=== PATIENT | male | born 1945 | race Caucasian/White ===

== ENCOUNTER → 2016-09-22 | Outpatient (CLI) | payer OTHER | LOC: BHFA 15:00 | PROVIDERS: ATTEND Internal Medicine Interventional Cardiology | DX: I25.10 Atherosclerotic heart disease of native coronary artery without angina pectoris (principal); I10 Essential (primary) hypertension; E78.5 Hyperlipidemia, unspecified ==

== ENCOUNTER 2018-08-12 12:00 | Inpatient (IN) | payer OTHER ==
[2018-09-07] MEDS ORDERED: ceFAZolin 2 GM/DEXTROSE 100 ML IV ONE (06:09)
[2018-09-07] MEDS ORDERED: FAMOTIDINE 20 MG TAB PO ONE (06:09)
[2018-09-07] MEDS ORDERED: ACETAMINOPHEN 325 MG TAB PO ONE (06:09)
[2018-09-07] MEDS ORDERED: LR 1,000 ML IV ONE (06:10)
--- NOTE | 2018-09-07 06:21 | PDHPUP ---
History & Physical Update H&P update statement: This history and physical update is based on an assessment of the patient which was completed after admission or registration (within 24 hours), but prior to the surgery/procedure. H&P update: H&P reviewed & patient examined, no change in patient's condition since H&P completed
[2018-09-07] MEDS ORDERED: TRANEXAMIC ACID 3,000 MG/50 ML BAG IRR ONE (06:48)
[2018-09-07] MEDS ORDERED: MIDAZOLAM 2 MG/2 ML VIAL ONE (07:01)
[2018-09-07] MEDS ORDERED: LIDOCAINE 2% 5 ML SDV ONE (07:05)
[2018-09-07] MEDS ORDERED: BUPIVACAINE/DEXTROSE 7.5MG/ML 2 ML SPINAL AMP SP ONE (07:05)
[2018-09-07] MEDS ORDERED: PROPOFOL/EMULSION 500 MG/50 ML BOTTLE IV ONE (07:05)
[2018-09-07] MEDS ORDERED: TRANEXAMIC ACID 3,000 MG in NS (SYRINGE) 50 ML IRR ONE (07:15)
[2018-09-07] MEDS ORDERED: ROPIVACAINE 0.2% 80 MG, EPINEPHrine 0.2 MG, KETOROLAC TROMETHAMINE 30 MG in SYRINGE 0 ML IU ONE (07:15)
[2018-09-07] MEDS ORDERED: PHENYLEPHRINE HCL 100 MCG/ML SYR ONE (07:27)
[2018-09-07] MEDS ORDERED: oxyCODONE IR 5 MG TAB PO PRN (07:42)
[2018-09-07] MEDS ORDERED: PROMETHAZINE HCL 25 MG/ML INJ IVP PRN ×2 (07:42→08:50)
[2018-09-07] MEDS ORDERED: HYDROCODONE/APAP 5/325 TAB PO PRN (07:42)
[2018-09-07] MEDS ORDERED: ALBUTEROL 3 ML DEYVIAL IH PRN (07:42)
[2018-09-07] MEDS ORDERED: ONDANSETRON 4 MG/2 ML VIAL IVP PRN ×2 (07:42→08:50)
[2018-09-07] MEDS ORDERED: MIDAZOLAM 2 MG/2 ML VIAL IVP ONE (07:42)
[2018-09-07] MEDS ORDERED: HYDROmorphONE/DILAUDID 2 MG/ML INJ IVP PRN (07:42)
[2018-09-07] MEDS ORDERED: NALOXONE HCL 0.4 MG/ML INJ IVP PRN (07:42)
[2018-09-07] MEDS ORDERED: fentaNYL 100 MCG/2 ML INJ IVP PRN (07:42)
[2018-09-07] MEDS ORDERED: ACETAMINOPHEN 500 MG TAB PO PRN (07:42)
[2018-09-07] MEDS ORDERED: ROPIVACAINE HCL 150 MG/30 ML INJ ONE (07:43)
--- NOTE | 2018-09-07 07:46 | PDANEPAE ---
ANE History of Present Illness right knee OA ANE Past Medical History - Cardiovascular History Hx Hypertension: Yes Hx Arrhythmias: No Hx Chest Pain: No Hx Coronary Artery / Peripheral Vascular Disease: Yes Hx CHF / Valvular Disease: No Hx Palpitations: No Cardiovascular History Comment: cardiac cath 2005 - Pulmonary History Hx COPD: No Hx Asthma/Reactive Airway Disease: No Hx Recent Upper Respiratory Infection: No Hx Oxygen in Use at Home: No Hx Sleep Apnea: No Sleep Apnea Screening Result - Last Documented: Positive - Neurologic History Hx Cerebrovascular Accident: No Hx Seizures: No Hx Dementia: No - Endocrine History Hx Diabetes: Yes Endocrine History Comment: NIDDM - Renal History Hx Renal Disorders: No - Liver History Hx Hepatic Disorders: No - Neurological & Psychiatric Hx Hx Neurological and Psychiatric Disorders: No - Cancer History Hx Cancer: Yes Cancer History Comment: prostate - Congenital Disorder History Hx Congenital Disorders: No - GI History Hx Gastrointestinal Disorders: Yes Gastrointestinal History Comment: gerd,hiatal hernia - Other Health History Other Health History: H[place]AP[place]. glaucoma. eczma lower legs - Chronic Pain History Chronic Pain: Yes (both knees) - Surgical History Prior Surgeries: eye surgery cataract removed left eye. meniscus repair 2010 ANE Review of Systems Review of Systems: - Exercise capacity METS (RN): 4 METS ANE Patient History - Allergies Allergies/Adverse Reactions: No Known Allergies Allergy (Verified 08/17/18 15:10) - Home Medications Home medications: home medication list seen and reviewed Home Medications: Allopurinol [Allopurinol 100 MG (*)] 100 mg PO DAILY@08/17/18 [Last Taken 1 Week Ago ~08/31/18] Aspirin [Aspirin 81mg (*)] 81 mg PO HS 08/17/18 [Last Taken 1 Week Ago ~08/31/18 ] Carvedilol [Coreg (*)] 3.125 mg PO BID@08/17/18 [Last Taken 09/07/18 04:00 ] Cholecalciferol Vit D3 [Vitamin D3 2000 units tab (OTC)] 2,000 units PO DAILY@ 08/17/18 [Last Taken 2 Weeks Ago ~08/24/18] Clopidogrel Bisulfate [Plavix (*)] 75 mg PO DAILY@08/17/18 [Last Taken 1 Week Ago ~08/31/18] Dextromethorphn/Acetaminoph/Cp [Coricidin Hbp Flu Tablet] 1 each PO BID [Last Taken 09/06/18] Glucosamine/Chondroitin [Glucosamine/Chondroitin (*)] 1 each PO TID 08/17/18 [ Last Taken 2 Weeks Ago ~08/24/18] Herbals/Supplements -Info Only 1 ea PO DAILY 08/17/18 [Last Taken 2 Weeks Ago ~ 08/24/18] Latanoprost 0.005% [Xalatan 0.005% (*)] 1 drops EACHEYE HS 08/17/18 [Last Taken 09/06/18] Lisinopril [Zestril 40 mg (*)] 40 mg PO DAILY@12 08/17/18 [Last Taken 09/07/18 04:00] Loperamide HCl [Imodium 2 mg (*)] 2 mg PO DAILY 08/17/18 [Last Taken 09/06/18] Niacin ER [Niaspan 1000 mg (*)] 2,000 mg PO HS 08/17/18 [Last Taken 2 Weeks Ago ~08/24/18] Omeprazole 20 mg PO DAILY 08/17/18 [Last Taken 09/07/18 04:00] Rosuvastatin Calcium [Crestor 20mg (*)] 20 mg PO HS 08/17/18 [Last Taken ] Silodosin [Rapaflo] 8 mg PO DAILY@08/17/18 [Last Taken 09/07/18 04:00] Venlafaxine Xr [Effexor Xr] 150 mg PO DAILY 08/17/18 [Last Taken 09/07/18 04:00] amLODIPine BESYLATE [Norvasc 10 mg (*)] 10 mg PO HS 08/17/18 [Last Taken 04:00] metFORMIN HCL [Glucophage 500 mg (*)] 500 mg PO HS 08/17/18 [Last Taken 09/04/18 ] traMADol [Ultram 50 mg (*)] 50 mg PO BID@07,08/17/18 [Last Taken 09/06/18] - NPO status NPO Since - Liquids (Date): 09/07/18 NPO Since - Liquids (Time): 04:10 NPO Since - Solids (Date): 09/06/18 NPO Since - Solids (Time): 21:00 - Smoking Hx Smoking Status: Never smoked - Family Anes Hx Family Hx Anesthesia Complications: none ANE Labs/Vital Signs - Vital Signs Blood Pressure: 113/68 Heart Rate: 74 Respiratory Rate: 18 O2 Sat (%): 94 Height: 170.18 cm Weight: 86.183 kg ANE Physical Exam - Airway Neck exam: FROM Mallampati Score: Class 2 Mouth exam: normal dental/mouth exam - Pulmonary Pulmonary: no respiratory distress - Cardiovascular Cardiovascular: regular rate and rhythym - ASA Status ASA Status: III ANE Anesthesia Plan Anesthesia Plan: spinal Regional Anesthesia: single shot NB, adductor canal FNB Urgent/Emergent Case: Keith barcenas completed preop but documented later for safe timely pt care
[2018-09-07] MEDS ORDERED: ePHEDrine SULFATE 25 MG/5 ML SYR ONE (07:53)
[2018-09-07] MEDS ORDERED: VASOPRESSIN 20 UNIT/ML VIAL ONE (08:00)
--- NOTE | 2018-09-07 08:11 | POSTANESTH ---
Post Anesthetic Evaluation Cardiovascular Status: Tx Hyper/Hypo-tension Respiratory Status: Normal, Stable Level of Consciousness/Mental Status: Can Participate in Eval, Alert and Oriented Pain Control: Adequate, Prn Tx Ordered Nausea/Vomiting Control: Adequate, Prn Tx Ordered Complications Possibly Related to Anesthesia: None Noted
[2018-09-07] MEDS ORDERED: ONDANSETRON DISINTEGRATING 4 MG TAB PO PRN (08:50)
[2018-09-07] MEDS ORDERED: PROMETHAZINE HCL 25 MG SUPPR PR PRN (08:50)
[2018-09-07] MEDS ORDERED: POLYETHYLENE GLYCOL 3350 17 GM PKT PO PRN (08:50)
[2018-09-07] MEDS ORDERED: DIPHENOXYLATE/ATROPINE LOMOTIL 1 TAB PO PRN (08:50)
[2018-09-07] MEDS ORDERED: diphenhydrAMINE 25 MG CAP PO PRN (08:50)
[2018-09-07] MEDS ORDERED: CYCLOBENZAPRINE 10 MG TAB PO PRN (08:50)
[2018-09-07] MEDS ORDERED: BISACODYL 10 MG SUPP PR PRN (08:50)
[2018-09-07] MEDS ORDERED: MAGNESIUM HYDROXIDE 30 ML UDCUP PO PRN (08:50)
[2018-09-07] MEDS ORDERED: TEMAZEPAM 15 MG CAP PO PRN (08:50)
[2018-09-07] MEDS ORDERED: METOCLOPRAMIDE 10 MG/2 ML VIAL IVP PRN (08:50)
[2018-09-07] MEDS ORDERED: LACTULOSE 20 GM/30 ML UDCUP PO PRN (08:50)
--- NOTE | 2018-09-07 08:50 | POSTOPPROG ---
Post Op Note Date of Operation: 09/07/18 Surgeon: Heriberto Anderson [employer]vertising Layout Worker: Rebecca Anderson and [place] PA-C Anesthesiologist: Dr. Mcmullen Anesthesia: Spinal, Other (Specify) (Adductor canal block) Pre-op Diagnosis: right knee OA Post-op Diagnosis: same Indication: right knee pain Procedure: right TKA Findings: severe OA of right knee Inf/Abcess present in the surg proc area at time of surgery?: No EBL: 50-100
[2018-09-07] MEDS ORDERED: LR 1,000 ML IV SCH (09:00)
[2018-09-07] MEDS ORDERED: D50W 25 GM/50 ML SYR IVP PRN (09:39)
--- NOTE | 2018-09-07 11:18 | PDMN ---
Medical Necessity Medical necessity: Pt meets IP criteria per PA; est los >2 mn for R TKA cpt 98966; comorbid advanced age, ASA III, KHOA, prostate cancer, HTN, CAD, RBBB, DMII; per order 09/07/18
[2018-09-07] MEDS: INSULIN REGULAR HUMAN 100 UNIT/ML UNIT SC SCH ×3 (12:55→21:49)
[2018-09-07] MEDS: ACETAMINOPHEN 325 MG TAB PO SCH ×3 (13:03→23:49)
[2018-09-07] MEDS: oxyCODONE IR 5 MG TAB PO PRN ×2 (13:04→23:50)
[2018-09-07] MEDS: LISINOPRIL 40 MG TAB PO SCH ×2 (13:06→17:46)
[2018-09-07] MEDS: CARVEDILOL 3.125 MG TAB PO SCH ×2 (13:06→20:29)
[2018-09-07] MEDS: ceFAZolin 2 GM/DEXTROSE 100 ML IV SCH ×2 (15:23→22:02)
[2018-09-07] MEDS: SENNOSIDES/DOCUSATE SODIUM TAB PO SCH ×2 (15:36→20:31)
[2018-09-07] MEDS: VENLAFAXINE XR 150 MG CAP PO SCH (17:46)
[2018-09-07] MEDS: FAMOTIDINE 20 MG TAB PO SCH (20:29)
[2018-09-07] MEDS ORDERED: NIACIN ER 1000 MG TAB.ER PO SCH (21:00)
[2018-09-07] MEDS ORDERED: metFORMIN HCL 500 MG TAB PO SCH (21:00)
[2018-09-07] MEDS ORDERED: LATANOPROST 0.005% EACHEYE SCH (21:00)
[2018-09-07] MEDS ORDERED: ROSUVASTATIN CALCIUM 20 MG TAB PO SCH (21:00)
[2018-09-08] MEDS: ACETAMINOPHEN 325 MG TAB PO SCH (06:41)
[2018-09-08 07:55] VITALS: BP 120/69
[2018-09-08] MEDS: oxyCODONE IR 5 MG TAB PO PRN ×2 (07:58→11:10)
[2018-09-08] MEDS: INSULIN REGULAR HUMAN 100 UNIT/ML UNIT SC SCH (08:07)
--- NOTE | 2018-09-08 08:48 | SOAPPROG ---
SOAP Progress Note Assessment/Plan: Assessment: Patient is doing well POD 1 s/p RTKA Pain management: pain is well controlled on oral pain meds. VTE ppx: Restart Plavix at normal pre-op dose on day after surgery, cont JACQUELINE and SCDs Anemia: level is expected initially postop. Asymptomatic. Continue to monitor D/c planning:patient has done much better than anticipated. Patient is stable, BP stable, pain well controlled and patient is eager for discharge to home. May d/c to home today pending release from PT Plan: 09/08/18 08:46 Subjective: No nausea, vomiting, shortness of breath, chest pain Objective: Vital Signs Temp Pulse Resp BP Pulse Ox 36.8 C 86 16 120/69 94 09/08/18 07:54 09/08/18 07:54 09/08/18 07:54 09/08/18 07:54 09/08/18 07:54 Laboratory Results 09/08/18 04:33 09/07/18 09/08/18 09/09/18 05:59 05:59 05:59 Intake Total 2980 100 Output Total 1680 250 Balance 1300 -150 RLE: incision dressing clean and dry, NVI, positive PF/DF ICD10 Worksheet Patient Problems: Problems Problem Status Onset Primary osteoarthritis of right knee Acute
--- NOTE | 2018-09-08 09:09 | GDS ---
[f rep st] DISCHARGE SUMMARY ADMISSION DIAGNOSIS: Right knee osteoarthritis. DISCHARGE DIAGNOSIS: Right knee osteoarthritis. PROCEDURE: Right total knee arthroplasty, robotic assisted. VTE PROPHYLAXIS: Recommend Plavix, as he took it prior to surgery. BRIEF DESCRIPTION OF HOSPITAL STAY: Patient was admitted for an elective joint arthroplasty. The pa anmol tolerated the procedure well and has passed physical therapy. The patient was given appropriat e antibiotic prophylaxis and venous thromboembolism prophylaxis. The patient's pain was well control led on oral pain medication, patient was holding down food, and had urinated. Decision was made to d ischarge the patient. The patient was given post-operative prescriptions pre-operatively. PLAN: Please follow up as scheduled at Dr. Anderson's office, September 27, at 11:30 a.m. /[id number]/MODL
--- NOTE | 2018-09-08 09:29 | ASMTLACE ---
LACE Acuity / Level of Answers: Yes Care: Did the patient have an inpatient admission? Comorbidities - select Answers: Any tumor (including all that apply lymphoma or leukemia) Coronary Artery Disease Diabetes (uncontrolled or controlled) Opioid dependence / Chronic pain Other Notes: HTN; GERD # of Emergency department Answers: 0 visits in the last 6 months Score: 13 Date Signed: 09/08/2018 09:28 AM Electronically Signed By:BRITTANIE Ortiz
[2018-09-08] MEDS: SENNOSIDES/DOCUSATE SODIUM TAB PO SCH (10:24)
[2018-09-08] MEDS: FAMOTIDINE 20 MG TAB PO SCH (10:25)
[2018-09-08] MEDS: VENLAFAXINE XR 150 MG CAP PO SCH (10:25)
[2018-09-08] MEDS ORDERED: CLOPIDOGREL BISULFATE 75 MG TAB PO SCH (12:00)
--- NOTE | 2018-09-13 09:15 | GOP ---
[f rep st] OPERATIVE REPORT DATE OF OPERATION: 09/07/2018 SURGEON: Faizan Anderson MD HOSE STRIPPER: 1. MEGAN Alexander. 2. MEGAN Fletcher. ANESTHESIA: Spinal. PREOPERATIVE DIAGNOSIS: Right knee osteoarthritis. POSTOPERATIVE DIAGNOSIS: Right knee osteoarthritis. PROCEDURE PERFORMED: Right total knee arthroplasty. FINDINGS: ESTIMATED BLOOD LOSS: 30 cc. INDICATIONS: This is a 73-year-old male with severe and progressive pain and deformity of the right knee unresponsive to conservative care. Risks and benefits of the surgical intervention were explain ed in detail. DESCRIPTION OF PROCEDURE: The patient was brought to the operative room and placed on the table in t he supine position. Spinal anesthesia was induced without difficulty. A pneumatic tourniquet was ap plied about the right proximal thigh, and the leg was prepped and draped in a sterile fashion. The l eg xiong was applied. After exsanguination by elevation the tourniquet was inflated to 250 mm of me rcury. Incision was made anterior medial from the tibial tuberosity to a point 2 cm proximal to the superior pole of the patella. Medial parapatellar arthrotomy was carried out from the superior pole of the p atella and posteriorly in line with the fibers of the Type II VMO. The medial collateral ligament wa s elevated and the infrapatellar fat pad was resected. The patella was everted and the articular surface was excised. A 35 mm patellar button was placed. T he distal femoral guide hole was drilled and the 6 degree alignment ly was placed. A 10 mm distal f emoral cut was made without difficulty. Attention was turned to the tibia and a standard 9 mm cut based on the lateral tibial condyle was per formed. The tibial articular surface was excised without difficulty. Attention was turned back to the femur and a size 4 femoral cutting block was positioned. Anterior, posterior, and chamfer cuts were made, followed by the intercondylar box cut. The knee was extended and the remnants of the medial and lateral meniscus were excised. The posterio r capsule was injected with ropivacaine, epinephrine and Toradol. A size 5 MIS mini-keel tibial tray was positioned. Trial reduction was then carried out. There was excellent range of motion, alignme nt, and stability using the 12 mm polyethylene. All trials were then removed. The joint was thoroughly irrigated and carefully dried. Two packages of cement and 2 grams of vancomycin were mixed in the vacuum mixer and placed on the fixation surface s of all surfaces of the components. The components were implanted and all excess cement was thoroug hly removed. The permanent 12 mm polyethylene X3 was placed without difficulty. The tourniquet was deflated and all bleeders were coagulated. The wound was thoroughly irrigated and closed using interrupted sutures of 2-0 Vicryl for the joint capsule. The subcu was closed with 3-0 Vicryl and the skin with 4-0 Monocryl. Dermabond and Steri-Strips were applied followed by a compre ssive dressing. The patient was then moved from the operating room to the recovery room in good cond ition, having tolerated the procedure well. PATHOLOGY: Severe medial and patellofemoral osteoarthritis. /[id number]/MODL
== END 2018-09-08 11:56 | disposition home or self-care (01) | DRG 470 ==
LOC: F3N 09-07 05:57
PROVIDERS: ADMIT Orthopaedic Surgery; ATTEND Orthopaedic Surgery
DX: M17.11 Unilateral primary osteoarthritis, right knee (principal); I10 Essential (primary) hypertension; I25.10 Atherosclerotic heart disease of native coronary artery without angina pectoris; E11.9 Type 2 diabetes mellitus without complications; K21.9 Gastro-esophageal reflux disease without esophagitis; K44.9 Diaphragmatic hernia without obstruction or gangrene; E78.5 Hyperlipidemia, unspecified
CPT/HCPCS: 97110-GP; 97116-GP; 97161-GP; J0171; J0690; J1885; J2250; J2370; J2704; J2795

== ENCOUNTER → 2018-08-24 | Outpatient (CLI) | payer OTHER | LOC: FIMAGING 09:48 | PROVIDERS: ATTEND Orthopaedic Surgery | DX: M17.11 Unilateral primary osteoarthritis, right knee (principal); M11.261 Other chondrocalcinosis, right knee; M23.41 Loose body in knee, right knee ==

== ENCOUNTER 2018-09-16 03:39 | Emergency (ER) | payer OTHER ==
--- NOTE | 2018-09-16 03:47 | EDPHY ---
H & P Time Seen by Provider: 09/16/18 03:42 HPI/ROS: Chief Complaint: Chest pain HPI: 73-year-old male woke this morning at 3:00 a.m. With chest tightness going across the center of his chest. Pain is a 4 out of 10. He had a right knee replacement 9 days ago. No shortness of breath. No fevers or chills. Does have history of coronary artery disease status post stenting in 2005. He says his knee is been healing well without any complications. No worsening swelling. Pain is not worse with deep inspiration. There are no aggravating or alleviating factors. Patient has been on Plavix. He did take 325 mg of aspirin. ROS: 10 systems were reviewed and were negative except those elements noted in the HPI. PMH: Coronary artery disease, hypertension, hyperlipidemia, right knee replacement Social History: No smoking, no alcohol, no recreational drug use Family History: non-contributory Physical Exam: Gen: Awake, Alert, No Distress HEENT: Nose: no rhinorrhea Eyes: PERRLA, EOMI Mouth: Moist mucosa Neck: Supple, no JVD Chest: nontender, lungs clear to auscultation Heart: S1, S2 normal, no murmur Abd: Soft, non-tender, no guarding Back: no CVA tenderness, no midline tenderness Ext: no edema, right knee has an intact scar, no erythema, not warm, no discharge, no calf tenderness Skin: no rash Neuro: CN II-XII intact, Sensation grossly intact, Strength 5/5 in bilateral upper and lower extremities - Medical/Surgical History Hx Diabetes: Yes Other PMH: HTN, hyperlipidemia, CAD, Diabetes Type 2, Gout, GERD, groin/hiatal hernia, prostate CA, osteoarthritis, KHOA - Social History Smoking Status: Never smoked Constitutional: Initial Vital Signs Temperature (C) 36.6 C 09/16/18 03:43 Heart Rate 61 09/16/18 03:43 Respiratory Rate 14 09/16/18 03:43 Blood Pressure 104/60 09/16/18 03:43 O2 Sat (%) 96 09/16/18 03:43 O2 Delivery Mode Room Air Allergies/Adverse Reactions: No Known Allergies Allergy (Verified 09/16/18 03:42) Home Medications: Medication Instructions Recorded Allopurinol [Allopurinol 100 MG 100 mg PO DAILY@12 08/17/18 (*)] Aspirin [Aspirin 81mg (*)] 81 mg PO HS 08/17/18 Carvedilol [Coreg (*)] 3.125 mg PO BID@08/17/18 Cholecalciferol Vit D3 [Vitamin D3 2,000 units PO DAILY@08/17/18 2000 units tab (OTC)] Clopidogrel Bisulfate [Plavix (*)] 75 mg PO DAILY@08/17/18 Dextromethorphn/Acetaminoph/Cp 1 each PO BID 08/17/18 [Coricidin Hbp Flu Tablet] Glucosamine/Chondroitin 1 each PO TID 08/17/18 [Glucosamine/Chondroitin (*)] Herbals/Supplements -Info Only 1 ea PO DAILY 08/17/18 Latanoprost 0.005% [Xalatan 0.005% 1 drops EACHEYE HS 08/17/18 (*)] Lisinopril [Zestril 40 mg (*)] 40 mg PO DAILY@08/17/18 Loperamide HCl [Imodium 2 mg (*)] 2 mg PO DAILY 08/17/18 Niacin ER [Niaspan 1000 mg (*)] 2,000 mg PO HS 08/17/18 Omeprazole 20 mg PO DAILY 08/17/18 Rosuvastatin Calcium [Crestor 20mg 20 mg PO HS 08/17/18 (*)] Silodosin [Rapaflo] 8 mg PO DAILY@08/17/18 Venlafaxine Xr [Effexor Xr] 150 mg PO DAILY 08/17/18 amLODIPine BESYLATE [Norvasc 10 mg 10 mg PO HS 08/17/18 (*)] metFORMIN HCL [Glucophage 500 mg 500 mg PO HS 08/17/18 (*)] traMADol [Ultram 50 mg (*)] 50 mg PO BID@,08/17/18 Acetaminophen [Tylenol 325mg (*)] 650 mg PO Q6HRS tab 09/08/18 Polyethylene Glycol 3350 [Miralax 17 gm PO DAILY PRN pkt 09/08/18 17 gm (*)] Sennosides/Docusate Sodium 1 - 2 tab PO BID tab 09/08/18 [Senokot-S] celeCOXIB [Celebrex (*)] 200 mg PO DAILY cap 09/08/18 oxyCODONE IR [Oxycodone Ir (*)] 5 - 10 mg PO Q3HRS PRN tab 09/08/18 Medical Decision Making - Diagnostics EKG Interpretation: ECG 3:43 a.m., sinus rhythm with a rate of 63, right bundle branch block, nonspecific ST and T-wave changes diffusely. Unchanged from prior. Imaging Results: CT scan of the chest impression: Unremarkable CT of the chest for pulmonary embolism. Study interpreted by Dr. Alberto, direct Radiology. ED Course/Re-evaluation: 73-year-old male with a recent knee surgery presenting with sudden onset of chest pain which woke him this morning, 10/26. No acute changes on his ECG, blood pressure is borderline. Given his recent knee surgery and risk factors will proceed with CT angiography to rule out PE. Troponin is negative. Awaiting CT scan results. Differential Diagnosis: 73-year-old male recent knee surgery presenting with substernal chest pain, . CT scan of the chest is negative for PE. Patient has no acute changes on his ECG. Troponin is negative. I have discussed with the hospitalist, Dr. Agrawal. He will admit to his service for further evaluation. - Data Points Laboratory Results: Laboratory Results 09/16/18 03:48 09/16/18 03:48 09/16/18 09/16/18 09/16/18 03:50 03:48 03:48 WBC 7.57 10^3/uL 10^3/uL (3.80-9.50) RBC 3.13 10^6/uL L 10^6/uL (4.40-6.38) Hgb 10.4 g/dL L g/dL (13.7-17.5) POC Hgb 11.2 gm/dL L gm/dL (13.7-17.5) Hct 31.1 % L % (40.0-51.0) POC Hct 33 % L % (40-51) MCV 99.4 fL fL (81.5-99.8) MCH 33.2 pg pg (27.9-34.1) MCHC 33.4 g/dL g/dL (32.4-36.7) RDW 13.0 % % (11.5-15.2) Plt Count 301 10^3/uL 10^3/uL (150-400) MPV 9.4 fL fL (8.7-11.7) Neut % (Auto) 63.5 % % (39.3-74.2) Lymph % (Auto) 21.1 % % (15.0-45.0) [place] % (Auto) 11.0 % % (4.5-13.0) Eos % (Auto) 3.7 % % (0.6-7.6) Baso % (Auto) 0.3 % % (0.3-1.7) Nucleat RBC Rel Count 0.0 % % (0.0-0.2) Absolute Neuts (auto) 4.81 10^3/uL 10^3/uL (1.70-6.50) Absolute Lymphs (auto) 1.60 10^3/uL 10^3/uL (1.00-3.00) Absolute Monos (auto) 0.83 10^3/uL H 10^3/uL (0.30-0.80) Absolute Eos (auto) 0.28 10^3/uL 10^3/uL (0.03-0.40) Absolute Basos (auto) 0.02 10^3/uL 10^3/uL (0.02-0.10) Absolute Nucleated RBC 0.00 10^3/uL 10^3/uL (0-0.01) Immature Gran % 0.4 % % (0.0-1.1) Immature Gran # 0.03 10^3/uL 10^3/uL (0.00-0.10) POC Sodium 142 mEq/L mEq/L (135-145) Sodium 139 mEq/L mEq/L (135-145) POC Potassium 3.4 mEq/L mEq/L (3.3-5.0) Potassium 3.7 mEq/L mEq/L (3.5-5.2) POC Chloride 101 mEq/L mEq/L (97-110) Chloride 102 mEq/L mEq/L (97-110) Carbon Dioxide 28 mEq/l mEq/l (22-31) POC Total CO2 27 mEq/L mEq/L (22-31) Anion Gap 9 mEq/L mEq/L (6-14) POC BUN 12 mg/dL mg/dL (7-23) BUN 15 mg/dL mg/dL (7-23) Creatinine 0.6 mg/dL L mg/dL (0.7-1.3) POC Creatinine 0.6 mg/dL L mg/dL (0.7-1.3) Estimated GFR > 60 Glucose 154 mg/dL H mg/dL (70-100) POC Glucose 160 mg/dL H mg/dL (70-100) Calcium 9.7 mg/dL mg/dL (8.5-10.4) POC Troponin I 09/16/18 03:47 WBC RBC Hgb POC Hgb Hct POC Hct MCV MCH MCHC RDW Plt Count MPV Neut % (Auto) Lymph % (Auto) [place] % (Auto) Eos % (Auto) Baso % (Auto) Nucleat RBC Rel Count Absolute Neuts (auto) Absolute Lymphs (auto) Absolute Monos (auto) Absolute Eos (auto) Absolute Basos (auto) Absolute Nucleated RBC Immature Gran % Immature Gran # POC Sodium Sodium POC Potassium Potassium POC Chloride Chloride Carbon Dioxide POC Total CO2 Anion Gap POC BUN BUN Creatinine POC Creatinine Estimated GFR Glucose POC Glucose Calcium POC Troponin I 0.00 ng/mL ng/mL (0.00-0.08) Point of Care Test Results: Chemistry 09/16/18 09/16/18 03:50 03:47 POC Sodium 142 mEq/L mEq/L (135-145) POC Potassium 3.4 mEq/L mEq/L (3.3-5.0) POC Chloride 101 mEq/L mEq/L (97-110) POC Total CO2 27 mEq/L mEq/L (22-31) POC BUN 12 mg/dL mg/dL (7-23) POC Creatinine 0.6 mg/dL L mg/dL (0.7-1.3) POC Glucose 160 mg/dL H mg/dL (70-100) POC Troponin I 0.00 ng/mL ng/mL (0.00-0.08) ISTAT H&H 09/16/18 03:50 POC Hgb 11.2 gm/dL L gm/dL (13.7-17.5) POC Hct 33 % L % (40-51) Departure - Departure Disposition: [facility] Inpatient Acute Clinical Impression: Chest pain Condition: Fair
[2018-09-16] MEDS ORDERED: IOPAMIDOL (ISOVUE 370) 100 ML BTL IV ONE (03:55)
[2018-09-16 03:56] LABS: PLATELET COUNT 301 10^3/uL (150-400)
[2018-09-16] MEDS ORDERED: ACETAMINOPHEN 325 MG TAB PO PRN (04:42)
[2018-09-16] MEDS ORDERED: ONDANSETRON 4 MG/2 ML VIAL IVP PRN (04:42)
[2018-09-16] MEDS ORDERED: ONDANSETRON DISINTEGRATING 4 MG TAB PO PRN (04:42)
--- NOTE | 2018-09-16 04:53 | PDGENHP ---
History and Physical - Chief Complaint Chest pain - History of Present Illness 73 yo M w hx of CAD, HTN, DM, and chronic pain presents with chest pain. The patient underwent a R TKA at [facility] on 09/07. He woke up this morning with chest discomfort. He describes moderate to severe lower chest/upper abdominal pain. He has never had pain like this before. He felt diaphoretic and looked pale during the episode. The pain persists but is very mild. His original CAD diagnosis stems from a cath in 2005. He tells me he had diffuse CAD not amenable to intervention so he has been medically managed since. Case discussed with ED physician Dr. Padilla; records reviewed and summarized above. History Information - Allergies/Home Medication List Allergies/Adverse Reactions: No Known Allergies Allergy (Verified 09/16/18 03:42) Home Medications: Allopurinol [Allopurinol 100 MG (*)] 100 mg PO DAILY@08/17/18 [Last Taken 1 Week Ago ~08/31/18] Aspirin [Aspirin 81mg (*)] 81 mg PO HS 08/17/18 [Last Taken 1 Week Ago ~08/31/18 ] Carvedilol [Coreg (*)] 3.125 mg PO BID@08/17/18 [Last Taken 09/07/18 04:00 ] Cholecalciferol Vit D3 [Vitamin D3 2000 units tab (OTC)] 2,000 units PO DAILY@ 08/17/18 [Last Taken 2 Weeks Ago ~08/24/18] Clopidogrel Bisulfate [Plavix (*)] 75 mg PO DAILY@08/17/18 [Last Taken 1 Week Ago ~08/31/18] Dextromethorphn/Acetaminoph/Cp [Coricidin Hbp Flu Tablet] 1 each PO BID [Last Taken 09/06/18] Glucosamine/Chondroitin [Glucosamine/Chondroitin (*)] 1 each PO TID 08/17/18 [ Last Taken 2 Weeks Ago ~08/24/18] Herbals/Supplements -Info Only 1 ea PO DAILY 08/17/18 [Last Taken 2 Weeks Ago ~ 08/24/18] Latanoprost 0.005% [Xalatan 0.005% (*)] 1 drops EACHEYE HS 08/17/18 [Last Taken 09/06/18] Lisinopril [Zestril 40 mg (*)] 40 mg PO DAILY@12 08/17/18 [Last Taken 09/07/18 04:00] Loperamide HCl [Imodium 2 mg (*)] 2 mg PO DAILY 08/17/18 [Last Taken 09/06/18] Niacin ER [Niaspan 1000 mg (*)] 2,000 mg PO HS 08/17/18 [Last Taken 2 Weeks Ago ~08/24/18] Omeprazole 20 mg PO DAILY 08/17/18 [Last Taken 09/07/18 04:00] Rosuvastatin Calcium [Crestor 20mg (*)] 20 mg PO HS 08/17/18 [Last Taken ] Silodosin [Rapaflo] 8 mg PO DAILY@08/17/18 [Last Taken 09/07/18 04:00] Venlafaxine Xr [Effexor Xr] 150 mg PO DAILY 08/17/18 [Last Taken 09/07/18 04:00] amLODIPine BESYLATE [Norvasc 10 mg (*)] 10 mg PO HS 08/17/18 [Last Taken 04:00] metFORMIN HCL [Glucophage 500 mg (*)] 500 mg PO HS 08/17/18 [Last Taken 09/04/18 ] traMADol [Ultram 50 mg (*)] 50 mg PO BID@07,12 08/17/18 [Last Taken 09/06/18] I have personally reviewed and updated: family history, medical history - Past Medical History coronary artery disease, diabetes type 2, hypertension - Surgical History Additional surgical history: R TKA 09/07/18 - Family History Positive for: CAD - Social History Smoking Status: Never smoked Review of Systems Review of Systems: ROS: 10pt was reviewed & negative except for what was stated in HPI & below Physical Exam Physical Exam: Temp Pulse Resp BP Pulse Ox 36.6 C 59 L 20 114/72 88 L 09/16/18 03:43 09/16/18 04:37 09/16/18 04:37 09/16/18 04:37 09/16/18 04:37 Constitutional: appears nourished, uncomfortable Eyes: PERRL, EOMI Ears, Nose, Mouth, Throat: moist mucous membranes, no oral mucosal ulcers Cardiovascular: regular rate and rhythym, systolic murmur Respiratory: no respiratory distress, clear to auscultation Gastrointestinal: normoactive bowel sounds, soft, non-tender abdomen Skin: warm, normal color Musculoskeletal: full muscle strength, no muscle tenderness Neurologic: AAOx3, CN II-XII Intact Psychiatric: interacting appropriately, not anxious Lab Data & Imaging Review 09/16/18 03:48 09/16/18 03:48 WBC 7.57 10^3/uL (3.80-9.50) 09/16/18 03:48 RBC 3.13 10^6/uL (4.40-6.38) L 09/16/18 03:48 Hgb 10.4 g/dL (13.7-17.5) L 09/16/18 03:48 POC Hgb 11.2 gm/dL (13.7-17.5) L 09/16/18 03:50 Hct 31.1 % (40.0-51.0) L 09/16/18 03:48 POC Hct 33 % (40-51) L 09/16/18 03:50 MCV 99.4 fL (81.5-99.8) 09/16/18 03:48 MCH 33.2 pg (27.9-34.1) 09/16/18 03:48 MCHC 33.4 g/dL (32.4-36.7) 09/16/18 03:48 RDW 13.0 % (11.5-15.2) 09/16/18 03:48 Plt Count 301 10^3/uL (150-400) 09/16/18 03:48 MPV 9.4 fL (8.7-11.7) 09/16/18 03:48 Neut % (Auto) 63.5 % (39.3-74.2) 09/16/18 03:48 Lymph % (Auto) 21.1 % (15.0-45.0) 09/16/18 03:48 [place] % (Auto) 11.0 % (4.5-13.0) 09/16/18 03:48 Eos % (Auto) 3.7 % (0.6-7.6) 09/16/18 03:48 Baso % (Auto) 0.3 % (0.3-1.7) 09/16/18 03:48 Nucleat RBC Rel Count 0.0 % (0.0-0.2) 09/16/18 03:48 Absolute Neuts (auto) 4.81 10^3/uL (1.70-6.50) 09/16/18 03:48 Absolute Lymphs (auto) 1.60 10^3/uL (1.00-3.00) 09/16/18 03:48 Absolute Monos (auto) 0.83 10^3/uL (0.30-0.80) H 09/16/18 03:48 Absolute Eos (auto) 0.28 10^3/uL (0.03-0.40) 09/16/18 03:48 Absolute Basos (auto) 0.02 10^3/uL (0.02-0.10) 09/16/18 03:48 Absolute Nucleated RBC 0.00 10^3/uL (0-0.01) 09/16/18 03:48 Immature Gran % 0.4 % (0.0-1.1) 09/16/18 03:48 Immature Gran # 0.03 10^3/uL (0.00-0.10) 09/16/18 03:48 POC Sodium 142 mEq/L (135-145) 09/16/18 03:50 Sodium 139 mEq/L (135-145) 09/16/18 03:48 POC Potassium 3.4 mEq/L (3.3-5.0) 09/16/18 03:50 Potassium 3.7 mEq/L (3.5-5.2) 09/16/18 03:48 POC Chloride 101 mEq/L (97-110) 09/16/18 03:50 Chloride 102 mEq/L (97-110) 09/16/18 03:48 Carbon Dioxide 28 mEq/l (22-31) 09/16/18 03:48 POC Total CO2 27 mEq/L (22-31) 09/16/18 03:50 Anion Gap 9 mEq/L (6-14) 09/16/18 03:48 POC BUN 12 mg/dL (7-23) 09/16/18 03:50 BUN 15 mg/dL (7-23) 09/16/18 03:48 Creatinine 0.6 mg/dL (0.7-1.3) L 09/16/18 03:48 POC Creatinine 0.6 mg/dL (0.7-1.3) L 09/16/18 03:50 Estimated GFR > 60 09/16/18 03:48 Glucose 154 mg/dL (70-100) H 09/16/18 03:48 POC Glucose 160 mg/dL (70-100) H 09/16/18 03:50 Calcium 9.7 mg/dL (8.5-10.4) 09/16/18 03:48 POC Troponin I 0.00 ng/mL (0.00-0.08) 09/16/18 03:47 Imaging Review: CTPE: Negative for PE Visualized and Interpreted EKG results: Yes EKG Interpretation: Positive for: normal sinsus rhythm, other (Unchanged from comparison dated 09/30/17), right bundle branch block Assessment & Plan Assessment: 73 yo M w hx of CAD, HTN, DM, and chronic pain presents with chest pain. Plan: 1. Chest pain - Initial troponin negative, ECG (personally reviewed/interpreted ) in NSR w/ RBBB, unchanged from September 2017 comparison. HEART score of 6 denotes need for further evaluation. CTPE negative for PE. - Observe in PCU - Monitor on telemetry, trend cardiac enzymes - NTG, ECG PRN for chest pain - Will order Lexiscan nuclear stress noting inability to exercise due to knee surgery 2. CAD - On DAPT, BB, and MAJOR as an outpatient. He follows with Dr. Najera. Cath in 2005 demonstrated diffuse disease not amenable to intervention; has been medically managed since. - Continue home medications - Acute management as above 3. DM - On oral agents as an outpatient. - Continue pending reconciliation 4. HTN - Continue home medications. 5. R TKA - Performed on 09/07 at [facility]; wound is healing well. Diet - NPO Code - Full Ppx - LMWH Dispo - Admit under observation status
[2018-09-16] MEDS ORDERED: LIDOCAINE 2% VISCOUS 15 ML UDCUP PO ONE (05:02)
[2018-09-16] MEDS ORDERED: MAG HYDROX/AL HYDROX/SIMETH 30 ML UDCUP PO ONE (05:02)
[2018-09-16] MEDS: NITROGLYCERIN 0.4 MG BTL SL PRN ×3 (05:52→06:09)
[2018-09-16] MEDS ORDERED: ONDANSETRON 4 MG/2 ML VIAL IVP ONE (05:56)
[2018-09-16] MEDS ORDERED: oxyCODONE IR 5 MG TAB PO PRN ×2 (07:38→10:29)
[2018-09-16] MEDS ORDERED: oxyCODONE IR 5 MG TAB ONE (07:43)
--- NOTE | 2018-09-16 08:50 | PDCARCONS ---
Cardiology Consult Reason for Consult: Chest pain Chief Complaint: Upper abdominal pressure Requesting Physician: Hospital Medicine History of Present Illness: 73-year-old male well known to me 9 days status post knee replacement awoke in the middle night with mid epigastric pressure in the chest. This was associated with mild nausea and diaphoresis. There was no significant shortness of breath. Patient activated 911 he was brought to the emergency department initial EKG was unremarkable. Initial troponin is negative. Patient was initially treated with a GI cocktail which made matters significantly worse. He then received nitroglycerin which caused him to vomit. He had a 2nd nitroglycerin at that time had relief of symptoms and has been pain-free since then. He has no prior history of myocardial infarction. He had unremarkable knee replacement. He did have a CT pulmonary angiogram concerning for pulmonary embolic disease which was unremarkable. On my arrival he is pain-free with no shortness of breath nausea vomiting diaphoresis. He has no further abdominal pain. He has had no diarrhea or constipation. He has had no fever or chills. There was no radiation of the discomfort into the back arm or jaw. He has had no exertional complaints. Yesterday's meal was quite heavy with cheese crackers blue cheese and meat plate. This was after quite a large breakfast. There are no other people ill in his family. He is accompanied today by his . Cardiac history is significant for known coronary artery disease with history of negative nuclear stress testing. Ejection fraction has been normal. He has underlying diabetes, hypertension, hyperlipidemia which has been well managed. Was last seen in the office on August [id number]. No contraindications to proceeding with surgery identified prior to most recent operation. History Information - Allergies/Home Medication List Allergies/Adverse Reactions: No Known Allergies Allergy (Verified 09/16/18 03:42) Home Medications: Allopurinol [Allopurinol 100 MG (*)] 100 mg PO DAILY@12 08/17/18 [Last Taken ] Aspirin [Aspirin 81mg (*)] 81 mg PO HS 08/17/18 [Last Taken 09/15/18] Carvedilol [Coreg (*)] 3.125 mg PO BID@1208/17/18 [Last Taken 09/15/18 21:00 ] Cholecalciferol Vit D3 [Vitamin D3 2000 units tab (OTC)] 2,000 units PO DAILY@ 08/17/18 [Last Taken 2 Weeks Ago ~08/24/18] Clopidogrel Bisulfate [Plavix (*)] 75 mg PO DAILY@08/17/18 [Last Taken ] Dextromethorphn/Acetaminoph/Cp [Coricidin Hbp Flu Tablet] 1 each PO BID [Last Taken 09/06/18] Glucosamine/Chondroitin [Glucosamine/Chondroitin (*)] 1 each PO TID 08/17/18 [ Last Taken 2 Weeks Ago ~08/24/18] Herbals/Supplements -Info Only 1 ea PO DAILY 08/17/18 [Last Taken 2 Weeks Ago ~ 08/24/18] Latanoprost 0.005% [Xalatan 0.005% (*)] 1 drops EACHEYE HS 08/17/18 [Last Taken 09/15/18] Lisinopril [Zestril 40 mg (*)] 40 mg PO DAILY@08/17/18 [Last Taken 09/15/18] Loperamide HCl [Imodium 2 mg (*)] 2 mg PO DAILY 08/17/18 [Last Taken 09/06/18] Niacin ER [Niaspan 1000 mg (*)] 2,000 mg PO HS 08/17/18 [Last Taken 2 Weeks Ago ~08/24/18] Omeprazole 20 mg PO DAILY 08/17/18 [Last Taken 09/15/18] Rosuvastatin Calcium [Crestor 20mg (*)] 20 mg PO HS 08/17/18 [Last Taken ] Silodosin [Rapaflo] 8 mg PO DAILY@08/17/18 [Last Taken 09/15/18] Venlafaxine Xr [Effexor Xr] 150 mg PO DAILY 08/17/18 [Last Taken 09/15/18] amLODIPine BESYLATE [Norvasc 10 mg (*)] 10 mg PO HS 08/17/18 [Last Taken ] metFORMIN HCL [Glucophage 500 mg (*)] 500 mg PO HS 08/17/18 [Last Taken 09/15/18 ] traMADol [Ultram 50 mg (*)] 50 mg PO BID@,08/17/18 [Last Taken 09/15/18 12: 00] I have personally reviewed and updated: family history, medical history, social history, surgical history Past Medical History: - Past Medical History coronary artery disease, diabetes type 2, hypertension, hyperlipidemia - Family History Positive for: non-pertinent - Social History Smoking Status: Never smoked Cardiac History - Cardiac History Cardiac Risk Factors: hypertension (>140/90), lipidemia, diabetes mellitus, age > 65, male Timing/Duration: Hours Severity: moderate Severity Scale: 5 Location: epigastric, abdomen Activities at Onset: rest Modifying Factors: improves with: antacids Associated Symptoms: nausea/vomiting KILEY Risk Evaluation age greater or equal to 65: yes greater or equal to 3 CAD risk factors: yes known CAD(stenosis greater or eqaul to 50%): no ASA use in past 7 days: yes severe angina(greater or equal to 2 episodes in 24hrs): no EKG ST changes greater or equal to 0.5mm: no positive cardiac marker: no Total Score: 3 KILEY Score: 13.2% risk Physical Exam Physical Exam: Temp Pulse Resp BP Pulse Ox 36.8 C 94 16 128/55 H 97 09/16/18 08:46 09/16/18 08:46 09/16/18 08:46 09/16/18 08:46 09/16/18 08:46 O2 (L/minute) 2 Constitutional: no apparent distress, appears nourished, not in pain Eyes: PERRL Ears, Nose, Mouth, Throat: moist mucous membranes Cardiovascular: regular rate and rhythym, no murmur, rub, or gallop, No systolic murmur, No JVD Peripheral Pulses: 1+: carotid (R), carotid (L), femoral (R), femoral (L) Respiratory: no respiratory distress, no rales or rhonchi Gastrointestinal: normoactive bowel sounds, other (Tympanitic, distended) Genitourinary: no bladder fullness Skin: warm, normal color, No rash Musculoskeletal: full muscle strength, no muscle tenderness Neurologic: AAOx3, sensation intact bilaterally, No weakness, No facial droop Psychiatric: interacting appropriately, not anxious Lymph, Heme, Immunologic: no cervical LAD, no supraclavicular LAD Lab and Imaging 09/16/18 03:48 09/16/18 03:48 WBC 7.57 10^3/uL (3.80-9.50) 09/16/18 03:48 RBC 3.13 10^6/uL (4.40-6.38) L 09/16/18 03:48 Hgb 10.4 g/dL (13.7-17.5) L 09/16/18 03:48 POC Hgb 11.2 gm/dL (13.7-17.5) L 09/16/18 03:50 Hct 31.1 % (40.0-51.0) L 09/16/18 03:48 POC Hct 33 % (40-51) L 09/16/18 03:50 MCV 99.4 fL (81.5-99.8) 09/16/18 03:48 MCH 33.2 pg (27.9-34.1) 09/16/18 03:48 MCHC 33.4 g/dL (32.4-36.7) 09/16/18 03:48 RDW 13.0 % (11.5-15.2) 09/16/18 03:48 Plt Count 301 10^3/uL (150-400) 09/16/18 03:48 MPV 9.4 fL (8.7-11.7) 09/16/18 03:48 Neut % (Auto) 63.5 % (39.3-74.2) 09/16/18 03:48 Lymph % (Auto) 21.1 % (15.0-45.0) 09/16/18 03:48 [place] % (Auto) 11.0 % (4.5-13.0) 09/16/18 03:48 Eos % (Auto) 3.7 % (0.6-7.6) 09/16/18 03:48 Baso % (Auto) 0.3 % (0.3-1.7) 09/16/18 03:48 Nucleat RBC Rel Count 0.0 % (0.0-0.2) 09/16/18 03:48 Absolute Neuts (auto) 4.81 10^3/uL (1.70-6.50) 09/16/18 03:48 Absolute Lymphs (auto) 1.60 10^3/uL (1.00-3.00) 09/16/18 03:48 Absolute Monos (auto) 0.83 10^3/uL (0.30-0.80) H 09/16/18 03:48 Absolute Eos (auto) 0.28 10^3/uL (0.03-0.40) 09/16/18 03:48 Absolute Basos (auto) 0.02 10^3/uL (0.02-0.10) 09/16/18 03:48 Absolute Nucleated RBC 0.00 10^3/uL (0-0.01) 09/16/18 03:48 Immature Gran % 0.4 % (0.0-1.1) 09/16/18 03:48 Immature Gran # 0.03 10^3/uL (0.00-0.10) 09/16/18 03:48 POC Sodium 142 mEq/L (135-145) 09/16/18 03:50 Sodium 139 mEq/L (135-145) 09/16/18 03:48 POC Potassium 3.4 mEq/L (3.3-5.0) 09/16/18 03:50 Potassium 3.7 mEq/L (3.5-5.2) 09/16/18 03:48 POC Chloride 101 mEq/L (97-110) 09/16/18 03:50 Chloride 102 mEq/L (97-110) 09/16/18 03:48 Carbon Dioxide 28 mEq/l (22-31) 09/16/18 03:48 POC Total CO2 27 mEq/L (22-31) 09/16/18 03:50 Anion Gap 9 mEq/L (6-14) 09/16/18 03:48 POC BUN 12 mg/dL (7-23) 09/16/18 03:50 BUN 15 mg/dL (7-23) 09/16/18 03:48 Creatinine 0.6 mg/dL (0.7-1.3) L 09/16/18 03:48 POC Creatinine 0.6 mg/dL (0.7-1.3) L 09/16/18 03:50 Estimated GFR > 60 09/16/18 03:48 Glucose 154 mg/dL (70-100) H 09/16/18 03:48 POC Glucose 160 mg/dL (70-100) H 09/16/18 03:50 Calcium 9.7 mg/dL (8.5-10.4) 03/01/19 03:48 POC Troponin I 0.00 ng/mL (0.00-0.08) 09/16/18 03:47 A/P Assessment: Impression: 73-year-old male with known coronary disease without history of myocardial infarction or heart failure admitted with atypical mid epigastric pressure relieved ultimately with an episode of nausea and vomiting. Initial troponin despite significant discomfort for significant time was unremarkable. He is currently pain-free. EKG does not suggest acute injury. Clinical history most consistent with GI etiology. Recommendations: Repeat troponin. If negative discharge from hospital after patient is able to tolerate p. O. And ambulate. Outpatient follow-up by Cardiology. If positive troponin would recommend diagnostic coronary angiogram. No indications for noninvasive testing with resting symptoms normal EKG normal troponin and known coronary artery disease. Continue current medical therapy. Plan: Repeat troponin. Clinical evaluation post testing. Advanced diet and activity as tolerated.
[2018-09-16] MEDS ORDERED: ENOXAPARIN 40 MG/0.4 ML SYR SC SCH (09:00)
[2018-09-16 11:00] VITALS: BP 127/74
[2018-09-16] MEDS ORDERED: LISINOPRIL 40 MG TAB PO SCH (12:00)
[2018-09-16] MEDS ORDERED: NON-FORMULARY NEW DRUG (Silodosin [Rapaflo] 8 MG) PO SCH (12:00)
[2018-09-16] MEDS ORDERED: ALLOPURINOL 100 MG TAB PO SCH (12:00)
[2018-09-16] MEDS ORDERED: CARVEDILOL 3.125 MG TAB PO SCH (12:00)
[2018-09-16] MEDS ORDERED: CLOPIDOGREL BISULFATE 75 MG TAB PO SCH (12:00)
[2018-09-16] MEDS ORDERED: traMADol 50 MG TAB PO SCH (12:00)
[2018-09-16] MEDS ORDERED: GLUCOSAMINE/CHONDROITIN CAP PO SCH (16:00)
--- NOTE | 2018-09-16 16:41 | GDS ---
[f rep st] DISCHARGE SUMMARY DISCHARGE DIAGNOSES: 1. Chest pain, suspect due to gastrointestinal distress. 2. Nonobstructive coronary artery disease, on medical management. 3. Diabetes type 2. 4. Hypertension. 5. Recent right total knee arthroplasty. HISTORY: The patient is a 73-year-old male, who recently underwent a right total knee arthroplasty. His last cardiac stress test was in 2015. He follows closely with Dr. Najera. He had a cardiac c atheterization in 2005 that had diffuse coronary artery disease, nonobstructive, and he has been medi scott managed ever since then. He presented to the hospital with a lower chest upper abdominal pain with some vomiting. Dr. Najera saw him in consultation. He felt strongly that this pain was likely GI in origin, and he canceled the stress test. Serial enzymes were negative. He will follow up [facility] with Dr. Najera in the office. DISCHARGE MEDICATIONS: Please see computerized record for full detailed list. New medications are n one. DISCHARGE INSTRUCTIONS: Follow up with Dr. Najera in 2 weeks. Return to ER for any recurrence of chest pain. The patient was seen and examined by me on the day of discharge. /[id number]/MODL
[2018-09-16] MEDS ORDERED: NIACIN ER 1000 MG TAB.ER PO SCH (21:00)
[2018-09-16] MEDS ORDERED: ROSUVASTATIN CALCIUM 20 MG TAB PO SCH (21:00)
[2018-09-16] MEDS ORDERED: LATANOPROST 0.005% 2.5 ML OPHT DROPS EACHEYE SCH (21:00)
[2018-09-16] MEDS ORDERED: [UNRECOGNIZED DRUG - OTHER] PO SCH (21:00)
[2018-09-16] MEDS ORDERED: ASPIRIN 81 MG CHEWABLE TAB PO SCH (21:00)
[2018-09-16] MEDS ORDERED: metFORMIN HCL 500 MG TAB PO SCH (21:00)
[2018-09-17] MEDS ORDERED: PANTOPRAZOLE SODIUM 40 MG TAB PO SCH (09:00)
[2018-09-17] MEDS ORDERED: LOPERAMIDE HCL 2 MG CAP PO SCH (09:00)
[2018-09-17] MEDS ORDERED: VENLAFAXINE XR 150 MG CAP PO SCH (09:00)
== END 2018-09-16 12:12 | disposition still patient (30) ==
LOC: EDUNIT# → UNDOADMOB 04:42
DX: R07.9 Chest pain, unspecified (principal); R10.13 Epigastric pain; I25.2 Old myocardial infarction; E11.9 Type 2 diabetes mellitus without complications; I10 Essential (primary) hypertension; E78.5 Hyperlipidemia, unspecified
CPT/HCPCS: 71275; 96374; 99285; J2405; Q9967; 82435-PO; 82565-PO; 82947-PO; 84132-PO; 84295-PO; 84484-ER; 84520-PO; 85014-ER; J1650